=== PATIENT | male | born 1970 | race African-American/Black ===

== ENCOUNTER 2021-02-05 12:53 | Emergency (ER) | payer MEDICAID ==
[~2021-02-05] VITALS: Ht 175.3 cm; Wt 73.0 kg
[2021-02-05] MEDS ORDERED: BACITRACIN ZINC OINT UDPKT TOP ONE (13:45)
[2021-02-05] MEDS ORDERED: TETANUS, DIPHTHERIA, PERTUSSIS VAC/PF 0.5ML (>7YR OLD) IM ONE (13:45)
[2021-02-05] MEDS ORDERED: IBUP-2029 PO (14:11)
[2021-02-05] MEDS ORDERED: AMOX-424 PO (14:11)
[2021-02-05 15:00] VITALS: BP 115/74
== END 2021-02-05 15:32 | disposition home or self-care (01) ==
LOC: ER 13:04
DX: S71.152A Open bite, left thigh, initial encounter (principal); S21.152A Open bite of left front wall of thorax without penetration into thoracic cavity, initial encounter; F10.229 Alcohol dependence with intoxication, unspecified; F31.9 Bipolar disorder, unspecified; I10 Essential (primary) hypertension; W54.0XXA Bitten by dog, initial encounter; Y93.89 Activity, other specified; Y92.89 Other specified places as the place of occurrence of the external cause; Y99.8 Other external cause status; Y90.0 Blood alcohol level of less than 20 mg/100 ml
CPT/HCPCS: 71045; 90471; 90715; 99283

== ENCOUNTER 2021-09-11 22:23 | Emergency (ER) | payer MEDICAID ==
[~2021-09-11] VITALS: Ht 170.2 cm; Wt 68.0 kg
[~2021-09-11 22:23] MED LIST: AMOX-424 PO; IBUP-2029 PO
[2021-09-11 22:25] VITALS: BP 145/94
[2021-09-11] MEDS ORDERED: TETANUS, DIPHTHERIA, PERTUSSIS VAC/PF 0.5ML (>10YR OLD) IM ONE (23:00)
[2021-09-11] MEDS ORDERED: HYDROCODONE/ACETAMINOPHEN 5/325MG TABLET PO ONE (23:00)
[2021-09-11] MEDS ORDERED: BACITRACIN ZINC OINT UDPKT TOP ONE (23:00)
[2021-09-11] MEDS ORDERED: BO1 TP (23:30)
[2021-09-11] MEDS ORDERED: AMOX-424 MT (23:30)
== END 2021-09-12 00:59 | disposition home or self-care (01) ==
LOC: ER 22:23
DX: S61.452A Open bite of left hand, initial encounter (principal); I10 Essential (primary) hypertension; F32.A Depression, unspecified; Z79.899 Other long term (current) drug therapy; Z91.018 Allergy to other foods; W54.0XXA Bitten by dog, initial encounter; Y93.89 Activity, other specified; Y92.89 Other specified places as the place of occurrence of the external cause; Y99.8 Other external cause status
CPT/HCPCS: 73130; 90471; 90715; 99283

== ENCOUNTER 2022-01-09 13:55 | Emergency (ER) | payer MEDICAID ==
[~2022-01-09] VITALS: Ht 165.1 cm; Wt 77.0 kg
[~2022-01-09 13:55] MED LIST changes: +AMOX-424 MT; +BO1 TP
[2022-01-09] MEDS ORDERED: KETOROLAC 60MG/2ML VIAL IM ONE (14:15)
[2022-01-09 16:11] VITALS: BP 138/84
== END 2022-01-09 16:11 | disposition home or self-care (01) ==
LOC: ER 13:55
DX: S92.314A Nondisplaced fracture of first metatarsal bone, right foot, initial encounter for closed fracture (principal); I10 Essential (primary) hypertension; Z91.018 Allergy to other foods; V09.9XXA Pedestrian injured in unspecified transport accident, initial encounter; Y93.89 Activity, other specified; Y92.89 Other specified places as the place of occurrence of the external cause; Y99.8 Other external cause status
CPT/HCPCS: 29515; 73610; 73630; 96372; 99284; J1885

== ENCOUNTER 2022-01-27 12:23 | Inpatient (IN) | payer MEDICAID ==
[~2022-01-27] VITALS: Ht 165.1 cm; Wt 69.4 kg
[2022-01-27] MEDS ORDERED: ACETAMINOPHEN 325MG TABLET PO STA (12:47)
[2022-01-27] MEDS ORDERED: VANCOMYCIN 1G PREMIX 200 ML IV ONE (13:00)
[2022-01-27] MEDS ORDERED: CLINDAMYCIN 600 MG in DEXTROSE 5% WATER 50 ML IV ONE (13:00)
[2022-01-27] MEDS ORDERED: PIPERACILLIN/TAZ 3.375G PREMIX 50 ML IV ONE (13:00)
[2022-01-27] MEDS ORDERED: SODIUM CHLORIDE 0.9% 1000ML BAG (SEPSIS BOLUS) IV ONE (13:00)
[2022-01-27] MEDS ORDERED: VANCOMYCIN 1GM PMX (XELLIA) 200 ML IV ONE (13:30)
[2022-01-27] MEDS ORDERED: CLINDAMYCIN 600 MG PREMIX 50 ML IV NR (13:30)
[2022-01-27 14:41] LABS: EOSINOPHILS % 0.9 % (0.0-5.0); HEMOGLOBIN. 13.4 g/dL (14.0-18.0); LYMPHOCYTES % 30.5 % (20.0-50.0); MEAN CORPUSCULAR HEMOGLOBIN 33.6 pg (28.0-32.0); MEAN CORPUSCULAR VOLUME 97.6 fL (80.0-94.0); MEAN PLATELET VOLUME 7.5 fl (7.4-10.4); MONOCYTES % 7.7 % (2.0-8.0); NEUTROPHILS % 58.9 % (40.0-76.0); PLATELET 236 x1000/uL (130-400); RED BLOOD CELL COUNT 3.99 mill/uL (4.7-6.1)
[2022-01-27 14:53] LABS: CHLORIDE 107 mEq/L (98-107)
[2022-01-27 14:59] LABS: PARTIAL THROMBOPLASTIN TIME 29.6 sec (23.4-31.0); PROTHROMBIN TIME 10.7 sec (9.6-11.0)
[2022-01-27] MEDS ORDERED: BACITRACIN 15GM TUBE TOP NR (15:45)
[2022-01-27] MEDS ORDERED: IOHEXOL-350 100 ML BOTTLE ONE (16:59)
[2022-01-27 22:25] VITALS: BP 138/78
[2022-01-28] MEDS ORDERED: HYDROCODONE/ACETAMINOPHEN 5/325MG TABLET PO PRN (02:00)
[2022-01-28] MEDS ORDERED: CLONIDINE 0.1MG TABLET PO PRN (02:00)
[2022-01-28] MEDS ORDERED: ACETAMINOPHEN 650MG/20.3ML UDC PO PRN (02:00)
[2022-01-28] MEDS ORDERED: ONDANSETRON HCL 4MG/2ML INJ IV PRN (02:00)
[2022-01-28] MEDS ORDERED: NALOXONE HCL 0.4 MG/ML 1ML VIAL IV PRN (02:30)
[2022-01-28 04:00] VITALS: BP 126/78
[2022-01-28] MEDS ORDERED: VANCOMYCIN 1.25GM PMX (XELLIA) 250 ML IV SCH (04:00)
[2022-01-28 06:39] LABS: CHLORIDE 106 mEq/L (98-107)
[2022-01-28] MEDS: PIPERACILLIN/TAZOBACTAM 3.375 G in DEXTROSE 5% WATER 50 ML IV SCH ×3 (06:45→21:56)
[2022-01-28 06:48] LABS: EOSINOPHILS % 1.1 % (0.0-5.0); HEMATOCRIT. 37.8 % (42.0-52.0); LYMPHOCYTES % 19.9 % (20.0-50.0); MEAN CORPUSCULAR HEMOGLOBIN 33.7 pg (28.0-32.0); MEAN CORPUSCULAR VOLUME 98.2 fL (80.0-94.0); MEAN PLATELET VOLUME 7.9 fl (7.4-10.4); MONOCYTES % 10.5 % (2.0-8.0); NEUTROPHILS % 67.5 % (40.0-76.0); PLATELET 214 x1000/uL (130-400); RED BLOOD CELL COUNT 3.84 mill/uL (4.7-6.1); RED CELL DISTRIBUTION WIDTH 13.3 % (11.6-14.6)
[2022-01-28 08:00] VITALS: BP 169/91
[2022-01-28] MEDS: ENOXAPARIN 40MG/0.4ML SYR SUBCUT SCH (09:31)
[2022-01-28 12:00] VITALS: BP 143/80
[2022-01-28] MEDS: BACITRACIN 15GM TUBE TOP SCH ×2 (15:18→21:56)
[2022-01-28 16:00] VITALS: BP 150/90
[2022-01-28] MEDS: VANCOMYCIN 750MG PMX (XELLIA) 150 ML IV SCH (17:20)
[2022-01-28 20:00] VITALS: BP 142/85
[2022-01-29] VITALS: BP 125/85
[2022-01-29] MEDS: VANCOMYCIN 750MG PMX (XELLIA) 150 ML IV SCH ×2 (00:40→08:08)
[2022-01-29 04:00] VITALS: BP 145/89
[2022-01-29] MEDS: PIPERACILLIN/TAZOBACTAM 3.375 G in DEXTROSE 5% WATER 50 ML IV SCH ×2 (05:39→14:16)
[2022-01-29] MEDS: BACITRACIN 15GM TUBE TOP SCH ×2 (05:39→14:16)
[2022-01-29 07:24] LABS: CHLORIDE 106 mEq/L (98-107)
[2022-01-29 08:00] VITALS: BP 137/86
[2022-01-29] MEDS: ENOXAPARIN 40MG/0.4ML SYR SUBCUT SCH (08:08)
[2022-01-29 12:00] VITALS: BP 150/80
[2022-01-29 16:00] VITALS: BP 143/71
[2022-01-29] MEDS ORDERED: VANCOMYCIN 1GM PMX (XELLIA) 200 ML IV SCH (22:00)
== END 2022-01-29 19:40 | disposition home or self-care (01) | DRG 342 ==
LOC: ER 12:34 → ENRESERV 19:57 → 6EST 20:47
PROVIDERS: ADMIT Internal Medicine; ATTEND Internal Medicine
PROC: 2W3SX1Z Immobilization of Right Foot using Splint (ICD-10-PCS; principal; 2022-01-27)
DX: S92.311A Displaced fracture of first metatarsal bone, right foot, initial encounter for closed fracture (principal); L03.115 Cellulitis of right lower limb; L89.890 Pressure ulcer of other site, unstageable; D53.9 Nutritional anemia, unspecified; F31.9 Bipolar disorder, unspecified; F10.20 Alcohol dependence, uncomplicated; S90.821A Blister (nonthermal), right foot, initial encounter; S92.344A Nondisplaced fracture of fourth metatarsal bone, right foot, initial encounter for closed fracture; S90.811A Abrasion, right foot, initial encounter; I10 Essential (primary) hypertension; S92.321A Displaced fracture of second metatarsal bone, right foot, initial encounter for closed fracture; Z91.018 Allergy to other foods; Z79.2 Long term (current) use of antibiotics; Z79.899 Other long term (current) drug therapy; Y93.89 Activity, other specified; Y92.89 Other specified places as the place of occurrence of the external cause; Z59.00 Homelessness unspecified; Y99.8 Other external cause status; V49.9XXA Car occupant (driver) (passenger) injured in unspecified traffic accident, initial encounter
CPT/HCPCS: 36415; 71045; 73590; 73630; 73706; 73721; 80048; 80053; 80202; 83605; 84145; 85025; 85651; 86140; 93971; 97161; 99291; J1650; J2543; J3370; J3490; J7030; J7060; Q9967

== ENCOUNTER 2022-02-17 12:43 | Emergency (ER) | payer MEDICAID ==
[~2022-02-17] VITALS: Ht 165.1 cm; Wt 75.0 kg
[~2022-02-17 12:43] MED LIST changes: -AMOX-424 MT; -AMOX-424 PO
[2022-02-17] MEDS ORDERED: MORPHINE SULFATE 4 MG/ML CPJ (NOT FOR IM USE) IV ONE (13:15)
[2022-02-17 14:17] LABS: BASOPHILS % 2.2 % (0.0-2.0); EOSINOPHILS % 1.3 % (0.0-5.0); HEMATOCRIT. 42.3 % (42.0-52.0); HEMOGLOBIN. 14.6 g/dL (14.0-18.0); LYMPHOCYTES % 37.5 % (20.0-50.0); MEAN CORPUSCULAR HEMOGLOBIN 34.4 pg (28.0-32.0); MEAN CORPUSCULAR VOLUME 99.2 fL (80.0-94.0); MONOCYTES % 9.4 % (2.0-8.0); NEUTROPHILS % 49.6 % (40.0-76.0); PLATELET 146 x1000/uL (130-400); RED BLOOD CELL COUNT 4.26 mill/uL (4.7-6.1); RED CELL DISTRIBUTION WIDTH 13.9 % (11.6-14.6)
[2022-02-17 14:24] LABS: CHLORIDE 107 mEq/L (98-107)
[2022-02-17] MEDS ORDERED: KETOROLAC 60MG/2ML VIAL IM ONE (18:15)
[2022-02-17] MEDS ORDERED: MORPHINE SULFATE 10 MG/ML CPJ IM ONE (18:15)
[2022-02-17] MEDS ORDERED: IBUP-2028 MT (18:38)
[2022-02-17] MEDS ORDERED: TOPUD PO (18:38)
[2022-02-17 18:46] VITALS: BP 133/82
== END 2022-02-17 19:15 | disposition home or self-care (01) ==
LOC: ER 12:43
DX: S92.321A Displaced fracture of second metatarsal bone, right foot, initial encounter for closed fracture (principal); V03.90XA Pedestrian on foot injured in collision with car, pick-up truck or van, unspecified whether traffic or nontraffic accident, initial encounter; Y93.89 Activity, other specified; Y92.488 Other paved roadways as the place of occurrence of the external cause; L97.512 Non-pressure chronic ulcer of other part of right foot with fat layer exposed; I10 Essential (primary) hypertension; Z59.00 Homelessness unspecified
CPT/HCPCS: 36415; 73610; 73630; 80053; 85025; 85651; 96372; 99284; J1885; Z7610; J2270